=== PATIENT | female | born 1970 | race Two or more races ===

== ENCOUNTER 2020-07-07 08:58 | Emergency (ER) | payer OTHER ==
[~2020-07-07] VITALS: Ht 157.5 cm; Wt 54.4 kg
[2020-07-07] MEDS ORDERED: BENADRYL25 MG PO (09:08)
[2020-07-07] MEDS ORDERED: ZYRTEC10 M3 PO (09:08)
[2020-07-07] MEDS ORDERED: PREDNISONE10 MG PO (09:09)
[2020-07-07] MEDS ORDERED: TENORMIN50 M1 PO (09:11)
[2020-07-07] MEDS ORDERED: COZAAR100 MG PO (09:11)
[2020-07-07] MEDS ORDERED: ZYLOPRIM100 M1 PO (09:11)
[2020-07-07] MEDS ORDERED: PREDNISOLO15 MG/5 ML PO ×2 (09:36→10:21)
[2020-07-07] MEDS ORDERED: ZYRTEC10 MG PO (10:21)
[2020-07-07] MEDS ORDERED: SLEEP AID50 MG PO (10:21)
== END 2020-07-07 11:57 | disposition home or self-care (01) ==
LOC: ER 08:58
DX: L27.2 Dermatitis due to ingested food (principal); Z20.828 Contact with and (suspected) exposure to other viral communicable diseases

== ENCOUNTER 2023-07-14 06:42 | Inpatient (IN) | payer OTHER ==
[~2023-07-14] VITALS: Ht 157.5 cm; Wt 47.6 kg
[~2023-07-14 06:42] MED LIST: BENADRYL25 MG PO; COZAAR100 MG PO; PREDNISOLO15 MG/5 ML PO; PREDNISONE10 MG PO; SLEEP AID50 MG PO; TENORMIN100 M1 PO; TENORMIN50 M1 PO; ZYLOPRIM100 M1 PO; ZYRTEC10 M3 PO; ZYRTEC10 MG PO
== END 2023-07-15 11:29 | disposition home or self-care (01) | DRG 581 ==
LOC: CIR.AMB 06:42 → SURH 13:28 → O/R 13:28 → SURH 13:47 → CIR.AMB 15:00 → SURH 07-15 11:29
PROVIDERS: Plastic Surgery; ADMIT Surgery; ATTEND Surgery
PROC: 0HRV0JZ Replacement of Bilateral Breast with Synthetic Substitute, Open Approach (ICD-10-PCS; 2023-07-14)
PROC: 07B50ZZ Excision of Right Axillary Lymphatic, Open Approach (ICD-10-PCS; principal; 2023-07-14 07:00)
PROC: 0HTV0ZZ Resection of Bilateral Breast, Open Approach (ICD-10-PCS; 2023-07-14 07:00)
DX: D05.11 Intraductal carcinoma in situ of right breast (principal); D24.2 Benign neoplasm of left breast; N62 Hypertrophy of breast; Z90.13 Acquired absence of bilateral breasts and nipples; Z20.822 Contact with and (suspected) exposure to COVID-19; Z91.02 Food additives allergy status

== ENCOUNTER 2023-11-03 09:10 | Emergency (ER) | payer OTHER ==
[~2023-11-03] VITALS: Ht 157.5 cm; Wt 49.9 kg
[2023-11-03] MEDS ORDERED: CALCITRIOL0.25 MCG PO (09:19)
[2023-11-03 10:24] LABS: HEMATOCRIT 31.8 % (36.0-45.00); HEMOGLOBIN 11.1 g/dL (12.0-15.00); MEAN CORPUSCULAR HEMOGLOBIN 30.7 pg (27.00-32.0); MEAN CORPUSCULAR HGB CONC 34.9 g/dl (32.0-36.0); PLATELET COUNT 300 K/uL (150-450); RED BLOOD COUNT 3.62 M/uL (4.00-6.00); RED CELL DISTRIBUTION WIDTH 12.4 % (11.5-14.5)
[2023-11-03 10:52] LABS: CALCIUM 12.1 mg/dL (8.5-10.1); GFR 8.26; POTASSIUM 4.04 mEq/L (3.5-5.1)
[2023-11-03 10:54] LABS: CREATININE SERUM 5.43 mg/dL (0.55-1.02)
== END 2023-11-03 11:39 | disposition home or self-care (01) ==
LOC: ER 09:11
PROVIDERS: Emergency Medicine
DX: I16.0 Hypertensive urgency (principal)

== ENCOUNTER 2023-12-07 08:56 | Inpatient (IN) | payer OTHER ==
[~2023-12-07] VITALS: Ht 157.5 cm; Wt 59.0 kg
[~2023-12-07 08:56] MED LIST changes: +CALCITRIOL0.25 MCG PO
[2023-12-07] MEDS ORDERED: COZAAR100 MG PO (09:14)
[2023-12-07] MEDS ORDERED: TENORMIN100 M1 (09:15)
[2023-12-07] MEDS ORDERED: PHOSLO667 M1 PO (09:15)
[2023-12-07] MEDS ORDERED: CLONIDINE HCL0.1 M1 PO (09:16)
[2023-12-07 09:58] LABS: HEMATOCRIT 37.2 % (36.0-45.00); HEMOGLOBIN 12.5 g/dL (12.0-15.00); MEAN CORPUSCULAR HEMOGLOBIN 29.7 pg (27.00-32.0); MEAN CORPUSCULAR HGB CONC 33.7 g/dl (32.0-36.0); PLATELET COUNT 391 K/uL (150-450); RED BLOOD COUNT 4.22 M/uL (4.00-6.00); RED CELL DISTRIBUTION WIDTH 13.1 % (11.5-14.5)
[2023-12-07 10:03] LABS: PH,URINE 6.5 (5.0-8.0); URINE APPEARANCE Cloudy; URINE BILIRRUBIN Negative (NEGATIVE); URINE BLOOD Trace; URINE COLOR Yellow; URINE GLUCOSE Negative (NEGATIVE); URINE LEUKOCYTE Trace; URINE NITRATE Negative; URINE UROBILINOGEN 0.2 E.U./dl
[2023-12-07 10:09] LABS: URINE BACTERIA 531.6 uL (0.0-1933); URINE RBC 14.5 uL (0.0-20.8); URINE WBC 24.7 uL (0.0-23.2)
[2023-12-07 10:18] LABS: URINE PROTEIN 100 (NEGATIVE)
[2023-12-07 12:02] LABS: ALBUMIN 4.2 gm/dL (3.4-5.0); BILIRUBIN TOTAL 0.46 mg/dL (0.3-1.2); CALCIUM 11.3 mg/dL (8.5-10.1); GFR 7.38; POTASSIUM 4.01 mEq/L (3.5-5.1); TOTAL PROTEIN 8.2 gm/dL (6.4-8.2)
[2023-12-07 12:05] LABS: CREATININE SERUM 5.99 mg/dL (0.55-1.02)
[2023-12-07 13:31] LABS: INR 0.99; PARTIAL THROMBOPLASTIN TIME 26.7 SECONDS (22.0-34.0); PROTHROMBIN TIME 10.4 SECONDS (9.0-11.5)
[2023-12-08 07:15] LABS: MAGNESIUM 2.4 mg/dL (1.8-2.4); PHOSPHOROUS 4.2 mg/dL (2.5-4.9)
[2023-12-11 08:28] LABS: HEMATOCRIT 26.6 % (36.0-45.00); MEAN CELL VOLUME 90.3 fL (80.00-100.00); MEAN CORPUSCULAR HGB CONC 34.4 g/dl (32.0-36.0); PLATELET COUNT 237 K/uL (150-450); RED BLOOD COUNT 2.94 M/uL (4.00-6.00); RED CELL DISTRIBUTION WIDTH 13.3 % (11.5-14.5)
[2023-12-11 08:33] LABS: MEAN CORPUSCULAR HEMOGLOBIN 31.2 pg (27.00-32.0)
[2023-12-11 08:34] LABS: HEMOGLOBIN 9.2 g/dL (12.0-15.00)
[2023-12-11 08:52] LABS: ALBUMIN 3.3 gm/dL (3.4-5.0); CALCIUM 8.6 mg/dL (8.5-10.1); PHOSPHOROUS 2.9 mg/dL (2.5-4.9); POTASSIUM 4.23 mEq/L (3.5-5.1)
[2023-12-11 09:14] LABS: GFR 10.16
[2023-12-11 09:15] LABS: CREATININE SERUM 4.54 mg/dL (0.55-1.02)
== END 2023-12-15 17:10 | disposition home or self-care (01) | DRG 675 ==
LOC: ER 08:56 → MEDJ 19:12
PROVIDERS: Emergency Medicine; General Practice; Radiology Vascular & Interventional Radiology; Specialist/Technologist, Other Nephrology; ADMIT Internal Medicine; ATTEND Internal Medicine
PROC: 5A1D80Z Performance of Urinary Filtration, Prolonged Intermittent, 6-18 hours Per Day (ICD-10-PCS; 2023-12-08)
PROC: 5A1D80Z Performance of Urinary Filtration, Prolonged Intermittent, 6-18 hours Per Day (ICD-10-PCS; 2023-12-11)
PROC: 0JHD3XZ Insertion of Tunneled Vascular Access Device into Right Upper Arm Subcutaneous Tissue and Fascia, Percutaneous Approach (ICD-10-PCS; principal; 2023-12-12 18:00)
PROC: 5A1D80Z Performance of Urinary Filtration, Prolonged Intermittent, 6-18 hours Per Day (ICD-10-PCS; 2023-12-13)
DX: N18.5 Chronic kidney disease, stage 5 (principal); N17.9 Acute kidney failure, unspecified; D64.9 Anemia, unspecified

== ENCOUNTER 2025-09-04 08:42 | Outpatient (CLI) | payer OTHER ==
[~2025-09-04 08:42] MED LIST changes: +CLONIDINE HCL0.1 M1 PO; +PHOSLO667 M1 PO; +TENORMIN100 M1
== END 2025-09-04 08:46 | disposition home or self-care (01) ==
LOC: SONOGRAMA 08:42
PROVIDERS: ATTEND Pathology Anatomic Pathology & Clinical Pathology
DX: D34 Benign neoplasm of thyroid gland (principal); E07.89 Other specified disorders of thyroid; E04.1 Nontoxic single thyroid nodule